=== PATIENT | male | born 1995 | race Two or more races ===

== ENCOUNTER 2021-01-25 12:27 | Emergency (ER) | payer OTHER ==
[~2021-01-25] VITALS: Ht 175.3 cm; Wt 93.4 kg
[2021-01-25 12:53] VITALS: BP 141/88
--- NOTE | 2021-01-25 13:02 | NUR ---
DR SIMPSON AT BEDSIDE
[2021-01-25] MEDS ORDERED: CEPH500T PO (13:17)
== END 2021-01-25 13:33 | disposition home or self-care (01) ==
LOC: ER 12:31
DX: L03.032 Cellulitis of left toe (principal)